=== PATIENT | female | born 1970 | race Caucasian/White ===

== ENCOUNTER 2025-03-29 12:38 | Emergency (ER) | payer MEDICAID ==
[~2025-03-29] VITALS: Ht 162.6 cm; Wt 85.7 kg
[2025-03-29] MEDS ORDERED: ACETAMINOPHEN ES 500 MG TABLET ONE (13:00)
[2025-03-29] MEDS: ACETAMINOPHEN ES 500 MG TABLET PO ONE (13:04)
[2025-03-29 14:07] VITALS: BP 141/80; TEMP 98.7; O2SAT 99
== END 2025-03-29 14:08 | disposition home or self-care (01) ==
LOC: ER 12:40
DX: S05.11XA Contusion of eyeball and orbital tissues, right eye, initial encounter (principal); I10 Essential (primary) hypertension; Y08.89XA Assault by other specified means, initial encounter; Y93.89 Activity, other specified; Y92.89 Other specified places as the place of occurrence of the external cause; Y99.9 Unspecified external cause status
CPT/HCPCS: 70450-TC; 70486-TC